=== PATIENT | female | born 2000 | race Caucasian/White ===

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

== ENCOUNTER 2021-02-23 14:00 | Outpatient (RCR) | payer OTHER, SELFPAY ==
--- NOTE | 2021-01-18 11:12 | MHC.PT.EP ---
[facility] [place] Office [place] Office [place] Office [address] Jo Ann Patel [address] [phone] F: [phone] F: [phone] F: [phone] F: [phone] Physical Therapy Plan of Care Date of Evaluation: Date of Surgery: na Diagnosis: Costochondritis (KP) Assessment: SANDRA IS A 20 YO AUTIST FEMALE, PRIMARILY NON-VERBAL. SHE PRESENTS WITH EXACCERBATION OF ANTERIOR CHEST WALL PAIN WHICH HAD BENEFITTED PREVIOUSLY FROM PT. UPON EXAM, FUNCTIONAL LIMITATIONS INCLUDE DECREASED STRENGTH OF SHOULDER AND PERISCAP MUSCULATURE, INCREASED TISSUE TENSION IN AXILLA AND PECTORALIS, DECREASED SHOULDER ROM, ALTERED POSTURE AND POSITIONING, INCREASED SOFT TISSUE TENSION AND INCREASED PAIN. FUNCTIONAL LIMITATIONS INCLUDE DECREASED ABILITY TO PERFORM SELF CARE TASKS, DECREASED PARTICIPATION IN SPORT AND VOCATIONAL PROGRAM, DISRUPTED SLEEP. FAIR CANDIDATE FOR PT TO ADDRESS DEFICITS AND MAXIMIZE RETURN TO FUNCTIONAL INDEPENDENCE. Frequency and Duration: The patient will be seen 2 X WEEK FOR 3 WEEKS Short Term Goals: REVIEW AND PROGRESS PREVIOUS HEP IN 2 VISITS INCREASED GH ROM TO WNLs, EQUAL SHAINA IN 2 WEEKS [facility] Goals: FULL, PAINFREE STRENGTH OF UPPER EXTREMITY AND SCAPULAR MUSCULATURE EQUAL SHAINA IN 3 WEEKS TO INDICATE PAIN NO MORE THAN 2/10 WITH ACTIVITIES IN 3 WEEKS TO DEMONSTRATE INDEPENDENCE WITH HEP IN 3 WEEKS Treatment Plan: Modalities to reduce pain, spasms and effusion. Manual therapy to restore motion and function. Therapeutic exercise to improve strength and flexibility. Neuromuscular re-education for posture and balance. Therapeutic activities to return to functional activities of daily living. Electronically signed by: CLEVELAND CRAMER PT, DPT Please sign and return to therapist. Thank you for your referral.
--- NOTE | 2021-02-23 14:47 | MHC.PT.DC ---
[facility] [place] Office [place] Office [place] Office [address] Jo Ann Patel [address] [phone] F: [phone] F: [phone] F: [phone] F: [phone] Physical Therapy Discharge Report Diagnosis: Costochondritis (KP) Date of Surgery: na Date of Evaluation: 01/18/21 Date of Discharge: 02/23/21 Treatments to Date: 5 Cancellations to Date: 2 No Shows to Date: 1 Discharge Status: Improved Function Independent with HEP Discharge Summary: Margaret was able to progress with therex today with increased weight and resistance. She is able to demo/recall HEP and is DCed on this date to continue with home program. Electronically signed by: Tiara Khan PT, DPT Please sign and return to therapist. Thank you for your referral.
== END 2021-02-23 14:47 | disposition home or self-care (01) ==
LOC: HO.PT 14:00
PROVIDERS: PCP Physician Assistant; Visit Provider Physician Assistant
DX: M94.0 Chondrocostal junction syndrome [Tietze] (principal)
CPT/HCPCS: 97110; 97162; 97530

== ENCOUNTER 2021-05-13 10:07 | Outpatient (REF) | payer OTHER, SELFPAY ==
[2021-05-13 11:27] LABS: COVID-19 Test Negative (Negative)
== END 2021-05-13 10:08 | disposition home or self-care (01) ==
LOC: HO.LAB 10:07
PROVIDERS: Visit Provider Internal Medicine
DX: Z20.822 Contact with and (suspected) exposure to COVID-19 (principal)
CPT/HCPCS: 36415; 87635; C9803

== ENCOUNTER 2021-06-02 10:14 | Outpatient (REF) | payer OTHER, SELFPAY ==
--- NOTE | ~2021-06-02 | XR_ITS ---
EXAMINATION: XR RIBS, LEFT CLINICAL INFORMATION: Chest pain COMPARISON: Chest x-ray 12/20/2020 TECHNIQUE: 3 views of the left ribs were obtained. Chest one view FINDINGS: Chest: There is normal expansion of both lungs without acute pneumonic process. The heart size and pulmonary vascularity is normal. Multiple views of left ribs reveal no visible fracture or bony abnormality. The soft tissues are normal. XR/XR ribs LT min 3V w CXR1V IMPRESSION: Unremarkable chest exam. Multiple views of left ribs reveal no visible fracture or bony abnormality.
== END 2021-06-02 10:15 | disposition home or self-care (01) ==
LOC: HO.XRAY 10:14
PROVIDERS: PCP Pediatrics; Visit Provider Pediatrics
DX: R07.89 Other chest pain (principal)
CPT/HCPCS: 71101

== ENCOUNTER 2022-03-22 11:00 | Emergency (ER) | payer OTHER, SELFPAY ==
--- NOTE | 2022-03-22 | ECG_ITS ---
Test Reason : chest pain Blood Pressure : / mmHG Vent. Rate : 074 BPM Atrial Rate : 074 BPM P-R Int : 158 ms QRS Dur : 084 ms QT Int : 384 ms P-R-T Axes : 029 004 023 degrees QTc Int : 426 ms Normal sinus rhythm Normal ECG When compared with ECG of 15-AUG-2020 23:30, No significant change was found Referred By: Generic ED Physician Electronically Signed By:PAMELLA MONROY MD
--- NOTE | ~2022-03-22 | XR_ITS ---
EXAMINATION: XR CHEST CLINICAL INFORMATION: Chest pain. COMPARISON: 06/02/2021 chest radiograph. TECHNIQUE: Frontal view of the chest was obtained. FINDINGS: No significant abnormality is noted involving the heart, lungs, mediastinum, bony thorax or soft tissues. XR/XR chest 1V IMPRESSION: No acute cardiopulmonary process.
[2022-03-22 11:56] VITALS: BP 116/66; BP 133/67; PULSE 72; PULSE 82; RESP 16; TEMP 36.6; O2SAT 100; O2SAT 99; BMI 42.3
[2022-03-22 12:10] LABS: MANUAL DIFF FLAG NO
[2022-03-22 12:13] LABS: Basophils Percent Auto 0.4 % (0-2); Eosinophils Absolute Auto 0.2 X10*3/uL (0.0-0.4); Eosinophils Percent Auto 2.7 % (0-4); Hemoglobin 13.8 g/dl (12.0-16.0); Imm Gran Abs Auto 0.03 X10*3/uL (0.00-0.03); Imm Gran Pct Auto 0.4 % (0.0-0.4); Lymphocytes Absolute Auto 1.3 X10*3/uL (1.2-4.9); Mean Corpuscular HGB Conc 32.1 g/dl (31.0-35.0); Mean Corpuscular Hemoglobin 27.1 pg (27.0-33.0); Mean Corpuscular Volume 84.3 fL (80.0-98.0); Monocytes Absolute Auto 0.6 X10*3/uL (0.1-1.2); Neutrophils Absolute Auto 4.9 x10*3/uL (2.0-8.3); Neutrophils Percent Auto 69.5 % (45-73); Platelet Count 280 X10*3/uL (160-400); White Blood Count 7.1 X10*3/uL (4.8-10.8)
[2022-03-22 12:24] LABS: Anion Gap 14 (12-20); Blood Urea Nitrogen 9 mg/dL (9-16); Calcium 9.3 mg/dL (8.4-10.2); Carbon Dioxide 24 mmol/L (22-29); Chloride 106 mmol/L (96-108); Creatinine Clr Calc Pharmacy 137.3; Estimated Glomerular Filt Rate > 60; Glucose Random 94 mg/dL (60-115); Potassium 3.8 mmol/L (3.3-5.1); Sodium 140 mmol/L (135-145)
[2022-03-22 12:32] LABS: Troponin-I High Sensitivity < 3.5 ng/L (<3.5-17.0)
[2022-03-22 18:15] VITALS: BP 114/71; PULSE 89; RESP 18; TEMP 36.6; O2SAT 98
[2022-03-22 20:26] VITALS: BP 108/69; PULSE 80; RESP 16; TEMP 36.9; O2SAT 99
--- OUTSIDE RECORDS SUMMARY | 2022-03-22 21:57 | XMS_ITS | Continuity of Care Document ---
:2000 Author Organization [facility] Address [address] [place] [id number]- Care Team Providers Name Role Phone Daisy PATEL, Lisa Berg Primary Care Physician Encounter [facility] [place] Date(s): 07/19/21 - 11/12/21 [facility] [address] [place] [id number] Attending Physician: Alexa PATEL, Fannie Admitting Physician: Alexa PATEL, Fannie Allergies, Adverse Reactions, Alerts No Known Allergies Medications gabapentin 250 mg/5 mL oral solution 5 mL = 250 mg, By Mouth, 3 times a day, # 420 mL, 2 Refills, Maintenance, 07/26/21 13:57:00 EST, Solution, [id number], Partial fill upon patient request, 123.4, cm, 07/19/21 12:38:00 EST, Height, 102.2, kg, 07/22/20 20:07:00 EST, Dry Weight Start Date: 07/26/21 Stop Date: 10/18/21 Status: OrderedSertraline See Instructions, By Mouth Daily, 0 Refills, Maintenance, 03/01/21 7:47:00 EDT, Partial fill upon patient request if the prescription is for a schedule II opioid drug. Start Date: 03/01/21 Status: Ordered Problem List Condition Effective Dates Status Health Status Informant Myalgia(Confirmed) Active Intercostal neuritis(Confirmed) Active Vomiting(Confirmed) Active
--- OUTSIDE RECORDS SUMMARY | 2022-03-22 21:57 | XMS_ITS | Continuity of Care Document ---
:2000 Author Organization [facility] Address [address] [place] [id number]- Care Team Providers Name Role Phone Lisa Villa MD Primary Care Physician [place] [facility] [place] 04/01/21 [facility] [address] [place] [id number]- Allergies, Adverse Reactions, Alerts Substance Reaction Severity Status NKA Active Medications baclofen 5 mg oral tablet 1 tablet = 5 mg, By Mouth, 3 times a day, Start off taking 5 mg at night before sleep. If not overlydrowsy, can increase to 5 mg three times a day as needed, # 90 tablet, 2 Refills, Maintenance, 03/01/21 8:36:00 EDT, Tablet, [id number], [place]... Start Date: 03/01/21 Stop Date: 05/30/21 Status: Orderedfluticasone 50 mcg inhalation powder 1 puffs = 50 mcg, Inhalation, 2 times a day, each, 0 Refills, Maintenance Start Date: 08/03/10 Status: Orderedibuprofen 200 mg oral capsule 2 capsule = 400 mg, By Mouth, Every 4 hours, PRN for pain, # 120 capsule, 0 Refills, Maintenance, 03/01/21 7:46:00 EDT, Capsule, Partial fill upon patient request if the prescription is for a schedule II opioid drug. Start Date: 03/01/21 Status: Orderedomeprazole 40 mg oral enteric coated capsule 1 capsule = 40 mg, By Mouth, Daily, before a meal, # 14 capsule, 0 Refills, Maintenance, 07/22/20 19:57:00 EST, EC Capsule, [id number], Partial fill upon patient request if the prescription is for a schedule II opioid drug., 102.2, kg, 2... Start Date: 07/22/20 Stop Date: 08/05/20 Status: OrderedPerformix P2 Performix P2, See Instructions, # 180 Gm, Refills 5, Tot. Refills 5, Maintenance, Ketamine 10% Baclofen 2% Gabapentin 10% Imipramine 3% Nifedipine 2% Bupivicaine 2% in Liposomal cream, 03/01/21 13:45:00 EDT, Compound Start Date: 03/01/21 Status: OrderedProAir HFA Inhalation, 4 times a day, 0 Refills, Maintenance Start Date: 08/03/10 Status: OrderedQvar 40 mcg/inh inhalation aerosol with adapter 2 puffs, Inhalation, 2 times a day, 0 Refills, Maintenance Start Date: 08/03/10 Status: OrderedSertraline See Instructions, By Mouth Daily, 0 Refills, Maintenance, 03/01/21 7:47:00 EDT, Partial fill upon patient request if the prescription is for a schedule II opioid drug. Start Date: 03/01/21 Status: OrderedSingulair 4 mg oral granule 1 each = 4 mg, By Mouth, Daily before dinner, 0 Refills, Maintenance Start Date: 08/03/10 Status: Ordered Problem List Condition Effective Dates Status Health Status Informant Intercostal neuritis(Confirmed) Active Vomiting(Confirmed) Active
--- OUTSIDE RECORDS SUMMARY | 2022-03-22 21:57 | XMS_ITS | Continuity of Care Document ---
:2000 Author Organization [facility] Address [address] [place] [id number]- Care Team Providers Name Role Phone Lisa Villa MD Primary Care Physician Encounter [facility] [place] Date(s): 10/25/21 - 11/24/21 [facility] [address] [place] [id number] Attending Physician: Annie Nair Admitting Physician: Anine Nair Referring Physician: trAnnie Allergies, Adverse Reactions, Alerts No Known Allergies Medications gabapentin 250 mg/5 mL oral solution 5 mL = 250 mg, By Mouth, 3 times a day, # 420 mL, 2 Refills, Maintenance, 07/26/21 13:57:00 EST, Solution, [id number], Partial fill upon patient request, 123.4, cm, [...]
--- OUTSIDE RECORDS SUMMARY | 2022-03-22 21:57 | XMS_ITS | Continuity of Care Document ---
:2000 Author Organization [facility] Address [address] [place] [id number]- Care Team Providers Name Role Phone Lisa Villa MD Primary Care Physician Encounter [facility] [place] Date(s): 07/16/20 - 07/16/[address] [address]- Encounter Diagnosis Chest wall pain (Final) - 07/16/20 Discharge Disposition: A-D/C Home Attending Physician: Gary Quiroga MD Admitting Physician: Gary Quiroga MD Referring Physician: Not on Staff, Referring MD Allergies, Adverse Reactions, Alerts Substance Reaction Severity Status NKA Active Medications fluticasone 50 mcg inhalation powder 1 puffs = 50 mcg, Inhalation, 2 times a day, each, 0 Refills, Maintenance Start Date: 08/03/10 Status: OrderedProAir HFA Inhalation, 4 times a day, 0 Refills, Maintenance Start Date: 08/03/10 Status: OrderedQvar 40 mcg/inh inhalation aerosol with adapter 2 puffs, Inhalation, 2 times a day, 0 Refills, Maintenance Start Date: 08/03/10 Status: OrderedSingulair 4 mg oral granule 1 each = 4 mg, By Mouth, Daily before dinner, 0 Refills, Maintenance Start Date: 08/03/10 Status: Ordered Problem List Condition Effective Dates Status Health Status Informant Vomiting(Confirmed) Active Results Radiology Reports Exam Date Time Procedure Performing Provider Status 07/16/20 11:09 AM Chest 2 Views Frontal and Lat Jimbo Orosco (Verified) Notes:(Chest 2 Views Frontal and Lat) Reason For Exam: Shortness of Breath;Other:RESULT: Chest 2 Views Frontal and Lat Chest 2 Views Frontal and Lat Hx of Present Illness: Right Mid chest pain x 3-4 days. Reason: Wrist pain, Shortness of Breath; COMPARISON: August 08, 2010 FINDINGS: LINES AND TUBES: None. LUNGS AND PLEURA: The lungs are clear. No pleural effusion. No pneumothorax. HEART, MEDIASTINUM AND JAMIA: Normal. BONES AND SOFT TISSUES: Normal. IMPRESSION: Normal. WSN: [id number] Ordering Physician: Jyoti Armenta Dictated By: Ovidio Gardner MD Dictated Date/Time: 07/16/20 11:12 a Reviewed By: Ovidio Gardner MD Signed By: Ovidio Gardner MD Signed Date/Time: 07/16/20 11:12 am Transcribed By: KAVON Transcribed Date/Time: 07/16/20 11:11 am Vital Signs Most recent to oldest 1 2 3 [Reference Range]: Oxygen Saturation [94-100 %] 100 % 98 % 98 % (07/16/20 11:30 AM) (07/16/20 9:17 AM) (07/16/20 9: 04 AM) Pulse Rate [55-90 bpm] 81 bpm 92 bpm 95 bpm (07/16/20 11:30 AM) *H* *H* (07/16/20 9:17 AM) (07/16/20 9:04 AM) Blood Pressure [71-110/30-71 121/80 mm Hg 115/69 mm Hg mm Hg] *H* *H* (07/16/20 11:30 AM) (07/16/20 9:17 AM) Respiratory Rate [16-30 18 br/min 16 br/min 18 br/mi n br/min] (07/16/20 11:30 AM) (07/16/20 9:17 AM) (07/16/20 9: 04 AM) Temperature [96.8-100.4 DegF] 98.1 DegF 99.1 DegF (07/16/20 11:30 AM) (07/16/20 9:17 AM) Mode of Delivery (Oxygen) Room air Room air (07/16/20 11:30 AM) (07/16/20 9:17 AM) Blood pressure sites Arm, left (07/16/20 11:30 AM) Temperature Route Oral Oral (07/16/20 11:30 AM) (07/16/20 9:17 AM)
--- OUTSIDE RECORDS SUMMARY | 2022-03-22 21:57 | XMS_ITS | Continuity of Care Document ---
:2000 Author Organization [facility] Address [address] [place] [id number]- Care Team Providers Name Role Phone Lisa Villa MD Primary Care Physician Encounter [facility] [place] Date(s): 07/22/20 - 07/22/[address] [id number]- Discharge Disposition: A-D/C Home Attending Physician: Malik Couch MD Admitting Physician: Malik Couch MD Referring Physician: Not on Staff, Referring MD Allergies, Adverse Reactions, Alerts Substance Reaction Severity Status NKA Active Medications fluticasone 50 mcg inhalation powder 1 puffs = 50 mcg, Inhalation, 2 times a day, each, 0 Refills, Maintenance Start Date: 08/03/10 Status: Orderedomeprazole 40 mg oral enteric coated capsule 1 capsule = 40 mg, By Mouth, Daily, before a meal, # 14 capsule, 0 Refills, Maintenance, 07/22/20 19:57:00 EST, EC Capsule, [id number], Partial fill upon patient request if the prescription is for a schedule II opioid drug., 102.2, kg, 2... Start Date: 07/22/20 Stop Date: 08/05/20 Status: OrderedProAir HFA Inhalation, 4 times a [...] Dates Status Health Status Informant Vomiting(Confirmed) Active Vital Signs Most recent to oldest 1 2 3 [Reference Range]: Weight 102.2 kg 102.2 kg (07/22/20 8:07 PM) (07/22/20 2:22 PM) Oxygen Saturation [94-100 %] 100 % 99 % 98 % (07/22/20 8:07 PM) (07/22/20 2:22 PM) (07/22/20 1:4 2 PM) Pulse Rate [55-90 bpm] 99 bpm 85 bpm 97 bpm *H* (07/22/20 2:22 PM) *H* (07/22/20 8:07 PM) (07/22/20 1:42 PM) Blood Pressure [71-110/30-71 mm 124/60 mm Hg 115/54 mm Hg Hg] *H* *H* (07/22/20 8:07 PM) (07/22/20 2:22 PM) Respiratory Rate [16-30 br/min] 18 br/min 16 br/min 18 br/min (07/22/20 8:07 PM) (07/22/20 2:22 PM) (07/22/20 1:4 2 PM) Temperature [96.8-100.4 DegF] 98.3 DegF 97.8 DegF (07/22/20 8:07 PM) (07/22/20 2:22 PM) Mode of Delivery (Oxygen) Room air Room air (07/22/20 8:07 PM) (07/22/20 2:22 PM) Blood pressure sites Arm, right Arm, left (07/22/20 8:07 PM) (07/22/20 2:22 PM) Temperature Route Oral (07/22/20 2:22 PM) Dry Weight 102.2 kg 102.2 kg (07/22/20 8:07 PM) (07/22/20 2:22 PM) Weight Obtained Via Standing scale (07/22/20 2:22 PM) Dry Weight Obtained Via Standing scale (07/22/20 2:22 PM)
--- OUTSIDE RECORDS SUMMARY | 2022-03-22 21:57 | XMS_ITS | Continuity of Care Document ---
:2001 Author Organization [facility] Address [address] [place] [phone]- Care Team Providers Name Role Phone Daisy PATEL, Lisa Begr Primary Care Physician [place] [facility] [place]/21 [facility] [address] [place] [phone]- Attending Physician: Not on Staff, Attending MD Referring Physician: Jada Starkey Allergies, Adverse Reactions, Alerts Substance Reaction Severity [...] a schedule II opioid drug., 102.2, kg, ... Start Date: 07/22/20 Stop Date: 08/05/20 Status: [...]
--- OUTSIDE RECORDS SUMMARY | 2022-03-22 21:57 | XMS_ITS | Continuity of Care Document ---
:2001 Author Organization [facility] Address [address] [place] [phone]- Care Team Providers Name Role Phone Lisa Villa MD Primary Care Physician [place] [facility] [place]21 - 08/24/21 [facility] [address] [place] [phone]- Allergies, Adverse Reactions, Alerts No Known Allergies Medications baclofen 5 mg oral tablet 1 tablet = 5 mg, By Mouth, 3 times a day, Start off taking 5 mg at night before sleep. If not overlydrowsy, can increase to 5 mg three times a day as needed, # 90 tablet, 2 Refills, Maintenance, 03/01/21 8:36:00 EDT, Tablet, [id number], [place]... Start Date: 03/01/21 Stop Date: 05/30/21 Status: Orderedgabapentin 250 mg/5 mL oral solution 5 mL = 250 mg, By Mouth, 3 times a day, # 420 mL, 2 Refills, Maintenance, 07/26/21 13:57:00 EST, Solution, [id number], Partial fill upon patient request, 123.4, cm, 07/19/21 12:38:00 EST, Height, 102.2, kg, 07/22/20 20:07:00 EST, Dry Weight Start Date: 07/26/21 Stop Date: 10/18/21 Status: OrderedPerformix P2 Performix P2, See Instructions, # 180 Gm, Refills 5, Tot. Refills 5, Maintenance, Ketamine 10% Baclofen 2% Gabapentin 10% Imipramine 3% Nifedipine 2% Bupivicaine 2% in Liposomal cream, 03/01/21 13:45:00 EDT, Compound Start Date: 03/01/21 Status: OrderedSertraline See Instructions, By Mouth Daily, 0 Refills, Maintenance, 03/01/21 7:47:00 EDT, Partial fill upon patient request if the prescription is for a schedule II opioid drug. Start Date: 03/01/21 Status: Ordered Problem List Condition Effective Dates Status Health Status Informant Myalgia(Confirmed) Active Intercostal neuritis(Confirmed) Active Vomiting(Confirmed) Active
--- NOTE | 2022-03-22 22:19 | ED.CHESTPAIN ---
HPI - Chest Pain General Chief Complaint: Chest Pain Stated Complaint: CP Time Seen by Provider: 03/22/22 21:43 Source: patient Mode of arrival: ambulatory Limitations: no limitations History of Present Illness HPI narrative: Patient is a 21-year-old female who presents to the emergency department with her mother for evaluation of chest pain. At 09:30 this morning patient was at her day program when she began reporting pain to the middle of her chest described as tightness, and had reported shortness of breath. She was brought by EMS to the emergency department. The pain started suddenly while she was sitting down. Patient and mother deny recent upper respiratory symptoms, fevers, chills, nasal congestion, sore throat, cough, nausea, vomiting, abdominal pain, numbness or tingling of the extremities, lower extremity swelling or redness, history of DVT/PE, history of coagulation disorder, cigarette smoking, oral contraceptive usage/hormone usage. Related Data Previous Rx's Medication Instructions Recorded ibuprofen 600 mg tablet 600 mg PO Q8H PRN pain #20 tabs 07/19/20 melatonin 5 mg/15 mL oral liquid 5 mg (15 mL) PO .nightly PRN sleep 07/11/21 trouble #240 mL gabapentin 250 mg/5 mL oral 250 mg (5 mL) PO TID 30 days #450 03/07/22 solution mL Allergies Allergy/AdvReac Type Severity Reaction Status Date / Time No Known Allergies Allergy Verified 02/10/22 16:40 Review of Systems Review of Systems: Constitutional : No Weight loss, No Fever, No Chills ENT/Mouth :? No sore throat, No Rhinorrhea Eyes: No Eye Pain, No Swelling Cardiovascular : pos Chest Pain, pos SOB, no Dyspnea on Exertion, No Orthopnea, No Edema, No Palpitations Respiratory : No Cough, No Sputum Gastrointestinal : No Nausea, No Vomiting, No Diarrhea, No abdominal Pain, No Hematochezia, No Melena Genitourinary : No Dysuria, No Urinary Frequency Musculoskeletal : No joint pain, No Myalgias, No Joint Swelling Skin : No Skin Lesions, No rash Neuro : No Weakness, No Numbness, No Dizziness, No Headache Psych : No Anxiety/Panic, No Depression Heme/Lymph: No Bruising, No Lymphadenopathy Endocrine : No Polyuria, No Polydipsia Yes all other systems are reviewed and are negative [facility] Past Medical History Attestation statement: The following information was validated with the patient. Source: old records reviewed Family History Family History Mother No problems noted. Social History Social History Alcohol intake: never Advance Directives: No Advance Directives Information Provided: No Physical Exam Vital Signs: Vital Signs: Last Vital Signs Temp 98.5 F 03/22/22 20:26 Pulse 80 03/22/22 20:26 Resp 16 03/22/22 20:26 BP 108/69 03/22/22 20:26 Pulse Ox 99 03/22/22 20: O2 Del Method 03/22/22 20:26 BMI result Body Mass Index 42.3 Vital signs have been reviewed as normal and appeared to be correct. Blood pressure normal.? Heart rate normal.? Respiration rate normal. Temperature normal.? Oxygen saturation normal. Appearance: Alert.?Oriented to person, place and time. No acute distress.? Flat affect. Eyes: Pupils equal, round and reactive to light.? ENT: Pharynx normal.?? Neck: Normal inspection.? Neck supple.?? CVS: Heart sounds normal. Normal heart rate and rhythm.? Pulses normal.?? Respiratory: No respiratory distress.? Lung sounds clear to auscultation bilaterally?? Abdomen: Soft and non-tender. Normoactive bowel sounds. Skin: Skin warm and dry.? Normal skin color.? Extremities: No lower extremity edema.? No calf ttp? Neuro: Moves all extremities spontaneously. Sensation intact bilaterally. No focal neuro deficits. Ambulates with normal steady gait. Course Course Course Narrative: Patient is a 21-year-old female with a past medical history of autism who presents to emergency department for evaluation of chest pain. Presents here today with her mother. At the time re-examination she is overall well-appearing. Flat affect. No apparent respiratory distress. Vital signs are stable. Review of labs obtained from triage reveal an overall unremarkable CBC and CMP. Troponin <3.5, EKG reveals normal sinus rhythm with no acute ischemic findings, not consistent with ACS. Chest x-ray reveals no acute cardiopulmonary process not consistent with pneumonia. PERC negative, D-Dimer 193, not consistent with pulmonary embolism. Received ibuprofen in the emergency department with some relief from pain. Suspect costochondritis at this time, mother reports that she has had a history of this in the past as well. Discussed plan of care for discharge home, worsened signs and symptoms to return back to the emergency department for, Tylenol/ibuprofen as needed for pain. MDM - Chest Pain Medical Records Data Attestation: I reviewed the patient's medical records. Lab Data Attestation: I reviewed the patient's lab results. Result diagrams: 03/22/22 12:06 03/22/22 12:06 Labs: Lab Results 03/22/22 03/22/22 03/22/22 Range/Units 12:06 12:06 12:06 WBC 7.1 (4.8-10.8) X10*3/uL RBC 5.10 (4.20-5.50) X10*6/uL Hgb 13.8 (12.0-16.0) g/dl Hct 43.0 (37.0-47.0) % MCV 84.3 (80.0-98.0) fL MCH 27.1 (27.0-33.0) pg MCHC 32.1 (31.0-35.0) g/dl RDW 14.0 (11.0-16.0) % Plt Count 280 (160-400) X10*3/uL MPV 9.0 L (9.4-12.3) fL Immature Gran % (Auto) 0.4 (0.0-0.4) % Neut % (Auto) 69.5 (45-73) % Lymph % (Auto) 18.0 L (20-40) % [place] % (Auto) 9.0 (2-11) % Eos % (Auto) 2.7 (0-4) % Baso % (Auto) 0.4 (0-2) % Lymph # (Auto) 1.3 (1.2-4.9) X10*3/uL [place] # (Auto) 0.6 (0.1-1.2) X10*3/uL Eos # (Auto) 0.2 (0.0-0.4) X10*3/uL Baso # (Auto) 0.0 (0.0-0.2) X10*3/uL Abs Immat Gran (auto) 0.03 (0.00-0.03) X10*3/uL Absolute Neuts (auto) 4.9 (2.0-8.3) x10*3/uL Absolute Nucleated RBC 0.000 (0.0-0.012) X10*3/uL Nucleated RBC % (auto) 0.0 (0.0-0.2) /100WBC D-Dimer High Sensitivty NG/ML Sodium 140 (135-145) mmol/L Potassium 3.8 (3.3-5.1) mmol/L Chloride 106 (96-108) mmol/L Carbon Dioxide 24 (22-29) mmol/L Anion Gap 14 (12-20) BUN 9 (9-16) mg/dL Creatinine 0.80 (0.5-1.4) mg/dL Estim Creat Clear Calc 137.3 Estimated GFR > 60 Random Glucose 94 (60-115) mg/dL Calcium 9.3 (8.4-10.2) mg/dL Troponin I High Sens < 3.5 (<3.5-17.0) ng/L 03/22/22 Range/Units 22:38 WBC (4.8-10.8) X10*3/uL RBC (4.20-5.50) X10*6/uL Hgb (12.0-16.0) g/dl Hct (37.0-47.0) % MCV (80.0-98.0) fL MCH (27.0-33.0) pg MCHC (31.0-35.0) g/dl RDW (11.0-16.0) % Plt Count (160-400) X10*3/uL MPV (9.4-12.3) fL Immature Gran % (Auto) (0.0-0.4) % Neut % (Auto) (45-73) % Lymph % (Auto) (20-40) % [place] % (Auto) (2-11) % Eos % (Auto) (0-4) % Baso % (Auto) (0-2) % Lymph # (Auto) (1.2-4.9) X10*3/uL [place] # (Auto) (0.1-1.2) X10*3/uL Eos # (Auto) (0.0-0.4) X10*3/uL Baso # (Auto) (0.0-0.2) X10*3/uL Abs Immat Gran (auto) (0.00-0.03) X10*3/uL Absolute Neuts (auto) (2.0-8.3) x10*3/uL Absolute Nucleated RBC (0.0-0.012) X10*3/uL Nucleated RBC % (auto) (0.0-0.2) /100WBC D-Dimer High Sensitivty 193 NG/ML Sodium (135-145) mmol/L Potassium (3.3-5.1) mmol/L Chloride (96-108) mmol/L Carbon Dioxide (22-29) mmol/L Anion Gap (12-20) BUN (9-16) mg/dL Creatinine (0.5-1.4) mg/dL Estim Creat Clear Calc Estimated GFR Random Glucose (60-115) mg/dL Calcium (8.4-10.2) mg/dL Troponin I High Sens (<3.5-17.0) ng/L Imaging Data Chest x-ray: Radiologist's impression: XR/XR chest 1V IMPRESSION: No acute cardiopulmonary process. ECG Data ECG #1: Attestation: I personally reviewed and interpreted this ECG as follows: ECG interpretation date: 03/22/22 Prior ECG tracings: available for review Interpretation: Rate: 74 Rhythm:? Normal sinus rhythm Normal:? Normal Normal P waves.? Normal JASON.?? Normal QRS complex.?? ST T wave :??No ST elevation, no ST depression, no T-wave inversion qTC: 426 prior studies:? 2020 The study has been interpreted contemporaneously by me. Discharge Plan Discharge Clinical Impression: Acute costochondritis Patient Disposition: Home, Self-Care Instructions: Costochondritis (ED) Additional Instructions: You can take ibuprofen 200 mg, 3 tablets (600mg) every 6-8 hours as needed for pain, in addition to Tylenol 500 mg, 2 tablets (1,000mg) every 4-6 hours as needed for pain, but not to exceed 3 doses daily (3,000mg).? Follow-up with your primary care provider as needed Return to the emergency department any new or worsening symptoms or concerns. Prescriptions: No Action gabapentin 250 mg/5 mL solution 250 mg PO TID 30 Days Qty: 450 1RF ibuprofen 600 mg tablet 600 mg PO Q8H PRN (Reason: pain) Qty: 20 0RF melatonin 5 mg/15 mL liquid 5 mg PO .nightly PRN (Reason: sleep trouble) Qty: 240 2RF Interventions: ED Discharge Assessment Last Done: 03/22/22 23:17 Discharge Date/Time: 03/22/22 23:17
[2022-03-22] MEDS: Ibuprofen Oral Susp 200 MG/10 ML ORAL.SUSP 600 MG PO (22:32)
[2022-03-22 22:52] LABS: D Dimer High Sensitivity 193 NG/ML
== END 2022-03-22 23:17 | disposition home or self-care (01) ==
PROVIDERS: Nurse Practitioner Family; Emergency Provider Emergency Medicine Emergency Medical Services; PCP Physician Assistant
DX: R07.89 Other chest pain (principal); R06.02 Shortness of breath; Z79.899 Other long term (current) drug therapy
CPT/HCPCS: 36415; 71045; 80048; 84484; 85025; 85379; 93005; 99283; 99284

== ENCOUNTER 2022-03-27 12:57 | Emergency (ER) | payer OTHER, SELFPAY ==
[2022-03-27 13:15] VITALS: BP 115/70; PULSE 83; RESP 18; TEMP 36.6; O2SAT 98; BMI 35.9
--- NOTE | 2022-03-27 15:43 | ED.GENADULT ---
HPI - General Adult General Chief complaint: General Medical Stated complaint: Tightness in chest Time Seen by Provider: 03/27/22 15:43 Source: patient and family (mother) Mode of arrival: ambulatory Limitations: physical limitation (patient is autistic with some cognitive delay) History of Present Illness HPI narrative: Patient is a 21 year old assigned female at with a history of autism and anxiety presenting to the emergency department today with chest wall pain. Patient states that she has chest pain that is worse with movement and when she pushes on it. Patient states that it is the same feeling she was seen here for before. Patient denies any dizziness, lightheadedness, abdominal pain, nausea, vomiting, fever, chills, blurry vision, double vision, loss of vision, difficulty breathing, shortness of breath, back pain, night sweats, pain with urination, increased urinary frequency, increased urinary urgency, blood in her urine or stool, syncope or a near syncopal episode, recent trauma or falls, bowel incontinence, bladder incontinence, bowel retention, bladder retention, or any other complaints at this time. Onset (ago): day(s) Location: chest Radiation: non-radiation Severity: mild Severity scale (1-10): 3 Quality: aching Pain Consistency: intermittent Relieving factors: none Exacerbating factors: other (palpation) Associated symptoms: denies other symptoms Treatments prior to arrival: none Related Data Previous Rx's Medication Instructions Recorded ibuprofen 600 mg tablet 600 mg PO Q8H PRN pain #20 tabs 07/19/20 melatonin 5 mg/15 mL oral liquid 5 mg (15 mL) PO .nightly PRN sleep 07/11/21 trouble #240 mL gabapentin 250 mg/5 mL oral 250 mg (5 mL) PO TID 30 days #450 03/07/22 solution mL Allergies Allergy/AdvReac Type Severity Reaction Status Date / Time No Known Allergies Allergy Verified 02/10/22 16:40 Review of Systems Constitutional: Constitutional: Reports no additional constitutional complaints, Denies chills, Denies fever(s) and Denies night sweats Eyes: Eyes: Reports no additional eye complaints, Denies blurry vision, Denies change in vision, Denies diplopia, Denies eye discharge, Denies loss of vision and Denies eye pain ENT: Denies dizziness Cardiovascular: Cardiovascular: Reports no additional cardiovascular complaints, Reports chest pain, Denies lightheadedness, Denies Loss of Consciousness and Denies dyspnea Respiratory: Respiratory: Reports no additional respiratory complaints and Denies dyspnea Gastrointestinal: Gastrointestinal: Reports no additional gastrointestinal complaints, Denies abdominal pain, Denies melena, Denies hematochezia, Denies change in bowel habits and Denies change in stool character Genitourinary: Genitourinary: Denies hematuria, Denies urinary frequency, Denies dysuria, Denies urinary incontinence, Denies urinary hesitancy and Denies urinary urgency Musculoskeletal: Musculoskeletal: Reports no additional musculoskeletal complaints, Denies numbness and Denies tingling Neurologic: Denies dizziness, Denies loss of vision, Denies numbness and Denies tingling Psychiatric: Psychiatric: Reports no additional psychiatric complaints Endocrine: Endocrine: Reports no additional endocrine complaints Hematologic/Lymphatic: Hematologic/Lymphatic: Reports no additional hematologic/lymphatic complaints Allergic/Immunologic: Allergic/Immunologic: Reports no additional allergic/immunologic complaints PMFSH Past Medical History Attestation statement: The following information was validated with the patient. Source: old records reviewed Family History Family History Mother No problems noted. Social History Social History Alcohol intake: never Advance Directives: No Advance Directives Information Provided: No Physical Exam ED Vital Signs: Vital Signs - 24 hr 03/27/22 13:15 Temperature 98 F Pulse Rate 83 Respiratory Rate 18 Blood Pressure 115/70 Pulse Oximetry 98 Oxygen Delivery Method Room Air BMI result Body Mass Index 35.9 Const General: cooperative, no acute distress, alert and awake Nutritional Appearance: well nourished Orientation/consciousness: patient oriented x3 Limitations: no limitations [facility] Head: Yes normal to inspection and Yes atraumatic Ears: hearing grossly normal bilaterally and external ears normal General nose exam: Normal external nose present, no nasal discharge noted and no epistaxis Face and sinus: Yes normal facial exam, No abrasion and No laceration Mouth: Normal oral and palatal mucosa present, no drooling and no muffled voice Eyes General: appearance normal, both eyes and all related structures Periorbital: periorbital findings normal Eyelids: Yes eyelids normal Conjunctivae: conjunctivae normal Pupils: Equal, round and reactive pupils present EOM: EOMs intact bilaterally Neck Neck: Yes normal visual inspection, Yes full ROM and Yes no lymphadenopathy Chest Chest palpation & inspection: normal inspection of the chest Resp Effort & Inspection: normal respiratory effort and able to speak in complete sentences Auscultation: clear to auscultation bilaterally Cardio Rate: regular rate Rhythm: regular rhythm GI Inspection: Yes normal to inspection Neuro General: patient oriented x3 and moves all extremities Cranial nerves: Yes Equal, round and reactive pupils present Cognition (Neuro): normal cognition Motor exam (neuro): 5/5 motor strength present throughout Sensory Exam: Normal double simultaneous stimulation for sensation Coordination: [id number] test normal Extrem General: Yes normal to inspection, Yes full ROM and Yes capillary refill normal Psych Appearance: grossly normal Mental Status: mental status grossly normal Affect: normal affect Attitude: cooperative Thought process: Normal thought process present Thought content: Normal thought content present Insight: Good insight present (Psych) Medical Decision Making MDM Narrative Medical decision making narrative: Patient is a 21 year old assigned female at with a history of autism and anxiety presenting to the emergency department today with chest wall pain. Patient's physical exam was unremarkable. I explained my physical exam findings to the patient and the patient's mother. I answered all questions asked by the patient and the patient's mother. I stressed the importance of the patient taking her medication as prescribed. I stressed the importance of the patient following up with her primary care provider. I stressed the importance of the patient returning to the emergency department immediately if her symptoms were to worsen or if she were to develop any dizziness, shortness of breath, difficulty breathing, chest pain, blurry vision, loss of vision, nausea, vomiting, abdominal pain, fever, chills, back pain, or any other complaints. Patient and the patient's mother verbalized agreement and understanding with this treatment plan and discharge. Medical Records Medical records reviewed: Yes I reviewed the patient's medical records. Discharge Plan Discharge Clinical Impression: Acute costochondritis Patient Disposition: Home, Self-Care Instructions: Costochondritis (ED) Additional Instructions: Follow up with your primary care provider. Return to the emergency department immediately if your symptoms worsen or if you develop any dizziness, shortness of breath, difficulty breathing, chest pain, blurry vision, loss of vision, nausea, vomiting, abdominal pain, fever, chills, back pain, or any other complaints. Prescriptions: No Action gabapentin 250 mg/5 mL solution 250 mg PO TID 30 Days Qty: 450 1RF ibuprofen 600 mg tablet 600 mg PO Q8H PRN (Reason: pain) Qty: 20 0RF melatonin 5 mg/15 mL liquid 5 mg PO .nightly PRN (Reason: sleep trouble) Qty: 240 2RF Referrals: Jada Delgado PA-C [Primary Care Provider] - Stand Alone Forms: Work/School Release Interventions: ED Discharge Assessment Last Done: 03/27/22 16:19 Discharge Date/Time: 03/27/22 16:20 Print Language: [place]
== END 2022-03-27 16:20 | disposition home or self-care (01) ==
PROVIDERS: Emergency Provider Emergency Medicine; PCP Physician Assistant
DX: R07.89 Other chest pain (principal); M94.0 Chondrocostal junction syndrome [Tietze]
CPT/HCPCS: 99282; 99283

== ENCOUNTER 2022-05-17 16:00 | Outpatient (RCR) | payer OTHER, SELFPAY | END 2022-05-17 17:58 | disposition home or self-care (01) | LOC: HO.PT 16:00 | PROVIDERS: PCP Physician Assistant; Visit Provider Student in an Organized Health Care Education/Training Program | DX: M94.0 Chondrocostal junction syndrome [Tietze] (principal) | CPT/HCPCS: 97110; 97162 ==

== ENCOUNTER 2023-08-06 13:36 | Outpatient (AMB) | payer OTHER, SELFPAY ==
[2023-08-06 13:40] VITALS: BP 112/80; PULSE 102; O2SAT 97; BMI 42.0
--- NOTE | 2023-08-06 13:40 | MHC.PC.OV ---
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 Accompanied by: Self / Same As Patient Allergies No Known Allergies Allergy (Verified 08/06/23 14:32) Medication List - Last Reconciled 08/06/23 by Gurdeep Cedeno MD betamethasone dipropionate 0.05% 1 appl topical BID PRN 10 days gabapentin 250 mg (5 mL) PO TID 30 days ibuprofen 600 mg PO Q8H PRN NS melatonin 5 mg PO BEDTIME sertraline 20 mg PO DAILY Tobacco use date assessed: 08/06/23 Dental Screening Dental Screen Date: 08/06/23 Did you have a dental visit in the last 12 months?: Yes Did you have a dental problem in the last 6 months where you did not have access to dental care?: No Was dental information given to patient?: Patient has dentist 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 HPI Details Patient comes in today for her annual physical examination and to establish care - is a new patient to the practice She is transferring over from her founder as she has outgrown the practice Patient has autism and is mostly non-verbal although she would occasionally speak in one word answers; information is obtained mostly from her aunt, who is here with her today, and with patient's mother, who is on videophone They states that patient has been out of her Gabapentin for about 2 to 3 months now and has been complaining of increasing pain and discomfort over her left lower rib cage area lately She also points to a rash over her right elbow area that her aunt states she's had for a couple of months now Relates that patient has indicated to them recently that the rash feels itchy often States that they have a strong family history of diabetes (both her aunt and mother have diabetes) and they would like patient to get checked for that as well Patient has been on Sertraline 20 mg QD for a while now for anxiety - her aunt states that being on Sertraline has helped a lot but she feels that her anxiety can still be better controlled and would like to see if her dose can be increased of appropriate States that all of patient's medications have to be in liquid form as she has trouble swallowing pills; patient has no problems when eating or drinking though and her swallowing issues seem to be isolated to medications - states that her mother has the same issue Patient reportedly is doing well otherwise, with no acute complaints of headaches, dizziness, chest pains or SOB She denies any nausea/vomiting or abdominal pain and no change in bowel habits noted She has no acute urinary issues and sleeps okay at night - has Melatonin 5 mg QD at bedtime [facility] Medical History (Updated 08/06/23 @ 15:34 by Gurdeep Cedeno MD) Morbid obesity with BMI of 40.0-44.9, adult Insomnia Anxiety Autism Intercostal neuritis Surgical History (Updated 08/06/23 @ 15:04 by Gurdeep Cedeno MD) No pertinent past surgical history Family History Mother No problems noted. Other Diabetes FH: mental illness Substance abuse Social History Housing: Apartment Alcohol intake: never Patient Tobacco Use Status: Never used Tobacco service: No Current occupational status: student Cognitive needs: No Hearing needs: No Vision needs: No Questionnaire PHQ-9 Over the last 2 weeks, how often have you been bothered by any of the following problems? 1. Little interest or pleasure in doing things: not at all 2. Feeling down, depressed, or hopeless: not at all 3. Trouble falling or staying asleep, or sleeping too much: not at all 4. Feeling tired or having little energy: not at all 5. Poor appetite or overeating: not at all 6. Feeling bad about yourself - or that you are a failure or have let yourself or your family down: not at all 7. Trouble concentrating on things, such as reading the newspaper or watching television: not at all 8. Moving or speaking so slowly that other people could have noticed. Or the opposite - being so fidgety or restless that you have been moving around a lot more than usual: not at all 9. Thoughts that you would be better off or of hurting yourself in some way: not at all Total score: 0 Depression Screening Interpretation: Negative Depression Screening Done: Yes 65383 - PHQ-9 Billing: Yes Source: Developed by Drs. Roman Baldwin, Elena Delgado, Alod Scott and colleagues, with an educational luciano from [employer]. Thrive Questionnaire Date Thrive assessed: 08/06/23 I am a: Parent/Caregiver What is your living situation today?: I have a steady place to live Within the past 12 months, did the food you bought not last and you didn't have the money to get more?: Never true Within the past 12 months, did you worry whether your food would run out before you got money to buy more?: Never true Do you have trouble paying for medicines?: No Do you have trouble getting transportation to medical appointments?: No Do you have trouble paying your heating and electricity bill?: No Do you have trouble taking care of your child, family member or friend?: No Do you have trouble with day-to-day activities such as bathing, preparing meals, shopping, managing finances, etc.?: No Are you currently unemployed and looking for a job?: No Are you interested in more education?: No Please select the resources that you would like help with: None Currently or been in a relationship where the following occur: no concerns reported THRIVE Score: 0 AUDIT C Alcohol Use Questionnaire (AUDIT-C) 1. How often do you have a drink containing alcohol?: Never 3. How often do you have six or more drinks on one occasion?: Never Total Score: 0 Score Reviewed/Action Taken: Yes JAYSON-7 AMB Questionnaire JAYSON-7 Date JAYSON - 7 assessed: 08/06/23 Feeling nervous, anxious, or on edge: 3 = Nearly every day Not being able to stop or control worryin = Not at all Worrying too much about different things: 0 = Not at all Trouble relaxin = Not at all Being so restless that it is hard to sit still: 0 = Not at all Becoming easily annoyed or irritable: 0 = Not at all Feeling afraid as if something awful might happen: 0 = Not at all Total JAYSON-7 score (0-4 normal; 5-9 mild; 10-14 moderate; 15-21 severe): 3 Source: Developed by Elena Pretty Kurt Kroenke and colleagues, with an educational luciano from [employer]. Review of Systems Const Details: ROS information is obtained mostly from patient's aunt / family as patient has autism and is mostly non-verbal Denies chills, Denies fatigue, Denies fever(s), Denies headache(s) and Denies malaise Eyes Denies blurry vision, Denies irritation and Denies itchy eyes ENT Denies dysphagia, Denies dizziness, Denies otalgia, Denies headache(s), Denies nasal congestion, Denies neck pain, Denies odynophagia, Denies sinus pain and Denies sore throat Card Denies chest pain, Denies rapid heart rate, Denies irregular heart rhythm, Denies palpitations and Denies dyspnea Resp Details: per family, has been c/o increased pain over the left lower ribs on the (left) lateral side of her thorax lately Denies chest congestion, Denies cough, Denies dyspnea and Denies wheezing GI Denies abdominal pain, Denies bloating, Denies constipation, Denies dysphagia, Denies heartburn, Denies diarrhea, Denies nausea, Denies odynophagia and Denies vomiting Denies hematuria, Denies dysuria and Denies urinary incontinence Musc Denies back pain, Denies arthralgias and Denies neck pain Skin/Breast Denies breast pain, Denies breast mass, Denies change in pigmentation, Denies lesions and Reports rash (itchy rash over right elbow area) Neuro Details: (+) pain over the area around the left lower rib cage on the side Denies dizziness, Denies headache(s) and Denies paresthesias Psych Denies anxiety and Denies depression Endo Denies fatigue and Denies palpitations Jorge/Lymph Denies easy bruising Aller/Immun Denies itchy eyes and Denies wheezing Physical exam (Primary Care) Vital Signs: Last Vital Signs Pulse 102 H 08/06/23 13:40 BP 112/80 08/06/23 13:40 Pulse Ox 97 08/06/23 13:40 Oxygen Delivery Method Room Air 08/06/23 13:40 BMI result Body Mass Index 42.0 Tobacco/Smoking Status: Tobacco use Status Tobacco use date assessed 08/06/23 08/06/23 13:43 Patient Tobacco Use Status Never used Tobacco 08/06/23 13:43 PHQ-9: PHQ-9 Score PHQ-9: Total score 0 08/06/23 14:05 Depression Screening Interpretation: Negative Thrive Assessment: Date of Thrive Assessment Date Thrive assessed 08/06/23 08/06/23 13:43 Currently or been in a relationship where the following occur: no concerns reported Const Other: Physical exam today is limited to what patient can participate in considering her developmental disabilities General: no acute distress, alert and awake Limitations: behavioral limitations (has autism and is mostly non-verbal) HENWV Head: Yes normocephalic and Yes atraumatic Ears: external ears normal, TM's normal bilaterally and EAC's normal General nose exam: No nasal discharge present Face and sinus: Yes normal facial exam and Yes face symmetric Throat: Yes posterior oropharynx normal and Yes tonsils normal (no TP congestion) Eyes Eyelids: Yes eyelids normal Conjunctivae: conjunctivae normal Neck Neck: Yes no lymphadenopathy and Yes supple Thyroid: Thyroid normal Resp Auscultation: clear to auscultation bilaterally, no rales and no wheezes Cardio Rate: regular rate Rhythm: regular rhythm Heart sounds: no murmurs GI Palpation (GI): Soft to palpation and nontender Auscultation: normal bowel sounds Back/Spine/Pelvis Thoracic/Lumbar Spine: thoracic and lumbar spine normal to inspection Skin Lesions: no lesions Rashes: rashes noted ((+) pruritic group of erythematous papular rash over the R elbow) Neuro General: moves all extremities Gait exam (Neuro): Normal gait present Extrem General: Yes no clubbing, cyanosis or edema Assessment and Plan Assessment & Plan (1) Annual physical exam: Code(s): Z00.00 - Encounter for general adult medical examination without abnormal findings Plan: Check labs Per request, will also check her FBS and HgbA1c for further evaluation (2) 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 - Other specified mononeuropathies Plan: Will start her back on Gabapentin 250 mg (5 ml) TID She used to go to pain management at [facility] but has not been back in a couple of years (3) Pruritic rash: Code(s): L28.2 - Other prurigo Plan: Will start her again on Betamethasone dipropionate 0.05% apply to rash over her elbow BID PRN - she has been prescribed this in the past and will send in Rx for the same for now (4) Insomnia: Code(s): G47.00 - Insomnia, unspecified Qualifiers: Insomnia type: unspecified Qualified Code(s): G47.00 - Insomnia, unspecified Plan: Continune Melatonin 5 mg Q HS (5) Autism: Code(s): F84.0 - Autistic disorder Plan: Follow up with psychiatry as scheduled (6) Anxiety: Comment: Doing well on sertraline, following with a therapist weekly. 04/17 Code(s): F41.9 - Anxiety disorder, unspecified Plan: Will try increasing her Sertraline from 20 mg to 40 mg QD Follow up with psychiatry as scheduled Plan Follow up in 4 months Orders: Orders Comprehensive Met. Panel Today Z00.00 - Encounter for general adult medical examination without abnormal findings UA CC w/rflx Micro + Cult Today R30.0 - Dysuria, Z00.00 - Encounter for general adult medical examination without abnormal findings Cholesterol Today Z00.00 - Encounter for general adult medical examination without abnormal findings Complete Blood Count Auto Diff Today D64.9 - Anemia, unspecified, Z00.00 - Encounter for general adult medical examination without abnormal findings TSH reflex Free T4 Today E78.00 - Pure hypercholesterolemia, unspecified, Z00.00 - Encounter for general adult medical examination without abnormal findings Vitamin D 25-OH Total Today E55.9 - Vitamin D deficiency, unspecified, Z00.00 - Encounter for general adult medical examination without abnormal findings Hemoglobin A1c Today R73.9 - Hyperglycemia, unspecified, Z00.00 - Encounter for general adult medical examination without abnormal findings Medications: Changed From sertraline 40 mg PO DAILY To sertraline 40 mg (2 mL) PO DAILY 30 days 60 mL 3RF Refilled gabapentin 250 mg (5 mL) PO TID 30 days 450 mL 3RF G58.8 - Other specified mononeuropathies betamethasone dipropionate 0.05% 1 appl topical BID 10 days PRN 60 mL 0RF rash Coding Level of Care Code New Pt Prev Care 18-39yr([id number] Diagnoses Annual physical exam Z00.00 Intercostal neuritis G58.8 Pruritic rash L28.2 Insomnia, unspecified type G47.00 Insomnia type: unspecified Autism F84.0 Anxiety F41.9
== END 2023-08-06 14:46 | disposition home or self-care (01) ==
PROVIDERS: PCP Internal Medicine; Visit Provider Internal Medicine
DX: Z00.00 Encounter for general adult medical examination without abnormal findings (principal); G58.8 Other specified mononeuropathies; L28.2 Other prurigo; G47.00 Insomnia, unspecified; F84.0 Autistic disorder; F41.9 Anxiety disorder, unspecified
CPT/HCPCS: 99395

== ENCOUNTER 2023-08-07 08:50 | Outpatient (REF) | payer OTHER, SELFPAY ==
[2023-08-07 10:49] LABS: MANUAL DIFF FLAG NO
[2023-08-07 10:55] LABS: Basophils Absolute Auto 0.1 X10*3/uL (0.0-0.2); Basophils Percent Auto 0.5 % (0-2); Eosinophils Absolute Auto 0.3 X10*3/uL (0.0-0.4); Eosinophils Percent Auto 2.6 % (0-4); Hematocrit 43.2 % (37.0-47.0); Hemoglobin 13.8 g/dl (12.0-16.0); Imm Gran Abs Auto 0.05 X10*3/uL (0.00-0.03); Imm Gran Pct Auto 0.5 % (0.0-0.4); Lymphocytes Absolute Auto 2.5 X10*3/uL (1.2-4.9); Mean Corpuscular HGB Conc 31.9 g/dl (31.0-35.0); Mean Corpuscular Volume 84.4 fL (80.0-98.0); Mean Platelet Volume 9.3 fL (9.4-12.3); Monocytes Absolute Auto 0.8 X10*3/uL (0.1-1.2); Monocytes Percent Auto 8.1 % (2-11); Neutrophils Absolute Auto 6.4 x10*3/uL (2.0-8.3); Neutrophils Percent Auto 63.3 % (45-73); Platelet Count 320 X10*3/uL (160-400); Red Blood Count 5.12 X10*6/uL (4.20-5.50); Red Cell Distribution Width 14.1 % (11.0-16.0); White Blood Count 10.1 X10*3/uL (4.8-10.8)
[2023-08-07 10:57] LABS: Appearance Urine Clear; Color Urine Yellow; Glucose Urine UA Negative (Negative); Leukocyte Esterase Urine Negative (Negative); Nitrite Urine Negative (Negative); PH 5.5 (5.0-9.0); Specific Gravity - Urine 1.025 (1.005-1.025); Urine Blood Negative (Negative); Urine Ketones Negative (Negative); Urine Protein Negative (Neg-Trace)
[2023-08-07 11:17] LABS: Alanine Aminotransferase 17 U/L (0-31); Albumin Level 3.9 g/dL (3.5-5.0); Alkaline Phosphatase 111 U/L (39-117); Anion Gap 9 (12-20); Aspartate Amino Transferase 15 U/L (5-31); Bilirubin Total 0.4 mg/dL (0.0-1.0); Blood Urea Nitrogen 12 mg/dL (9-16); Calcium 9.5 mg/dL (8.4-10.2); Carbon Dioxide 28 mmol/L (22-29); Chloride 107 mmol/L (96-108); Cholesterol 198 mg/dL (<200); Estimated Glomerular Filt Rate > 60; Glucose Random 94 mg/dL (60-115); Potassium 3.4 mmol/L (3.3-5.1); Sodium 141 mmol/L (135-145); Total Protein 7.7 g/dL (6.5-8.0)
[2023-08-07 11:18] LABS: Estimated Average Glucose 94 mg/dL; Hemoglobin A1c % 4.9 % (<6.0)
[2023-08-07 11:32] LABS: TSH reflex Free T4 5.05 uIU/mL (0.32-4.0); Vitamin D 25-OH Total 14.6 ng/mL (>30)
[2023-08-07 12:25] LABS: Free T4 (Free Thyroxine) 1.03 ng/dL (0.71-1.85)
== END 2023-08-07 08:51 | disposition home or self-care (01) ==
LOC: HO.10HDL 08:50
PROVIDERS: Visit Provider Internal Medicine
DX: Z00.00 Encounter for general adult medical examination without abnormal findings (principal); R30.0 Dysuria; D64.9 Anemia, unspecified; R73.9 Hyperglycemia, unspecified; E78.00 Pure hypercholesterolemia, unspecified; E55.9 Vitamin D deficiency, unspecified
CPT/HCPCS: 36415; 80053; 81003; 82306; 82465; 83036; 84439; 84443; 85025

== ENCOUNTER 2023-12-10 13:47 | Outpatient (AMB) | payer OTHER, SELFPAY ==
--- NOTE | 2023-12-10 13:56 | MHC.PC.OV ---
Vital Signs 12/10/23 13:58 Height 5 ft 2.5 in Weight 226 lb 2 oz BMI 40.7 BP 130/60 Blood Pressure Location Lt brachial Position Sitting Pulse 105 H Pulse Source Pulse Oximeter Pulse Oximetry (%) 95 Oxygen Delivery Method Room Air Intake Visit Reasons: autism, intercostal neuritis, anxiety Intake Note: Patient is here to follow up on Autism, Intercostal Neuritis, Anxiety . Radiation Oncology Therapist Required: No Groover And Turner: Present (mother and aunt) Accompanied by: Mother Allergies No Known Allergies Allergy (Verified 12/11/23 09:11) Medication List - Last Reconciled 12/11/23 by Gurdeep Cedeno MD betamethasone dipropionate 0.05% 1 appl topical BID PRN 10 days cholecalciferol (vitamin D3) 50 mcg (2 x 25 mcg (1,000 unit)) PO DAILY 90 days gabapentin 250 mg (5 mL) PO TID 30 days ibuprofen 600 mg PO Q8H PRN NS melatonin 5 mg PO BEDTIME sertraline 40 mg (2 mL) PO DAILY 30 days Tobacco use date assessed: 12/10/23 Dental Screening Dental Screen Date: 08/06/23 HPI autism, intercostal neuritis, anxiety HPI Details Patient comes in today for her follow up visit She has autism and is mostly non-verbal although she would occasionally speak in one word answers; information is obtained mostly from her aunt and her mother, both of who are here with her today She continues to complain of frequent pain and discomfort over her left lower rib cage area (she has intercostal neuritis) but her Gabapentin is helping with her pain Family relates that her anxiety is now better controlled with the dose increase (40 mg) to her Sertraline at her last visit She is otherwise doing well and they would like to know how she did on her labs done back in July 2023 Patient has had no acute issues with headaches, dizziness, chest pains or SOB Family states that patient eats very well No nausea/vomiting, no abdominal pain and no change in bowel habits noted [facility] Medical History (Updated 12/11/23 @ 09:27 by Gurdeep Cedeno MD) Vitamin D deficiency Morbid obesity with BMI of 40.0-44.9, adult Insomnia Anxiety Autism Intercostal neuritis Surgical History No pertinent past surgical history Family History Mother No problems noted. Other Diabetes FH: mental illness Substance abuse Social History Housing: Apartment Alcohol intake: never Patient Tobacco Use Status: Never used Tobacco e-Cigarette/Vaping Use: Never Used Second Hand Smoke Exposure: No service: No Current occupational status: student Cognitive needs: No Hearing needs: No Vision needs: No Questionnaire PHQ-9 Over the last 2 weeks, how often have you been bothered by any of the following problems? 2. Feeling down, depressed, or hopeless: several days (in treatment) Source: Developed by Drs. Roman Baldwin, Elena Delgado, Aldo Scott and colleagues, with an educational luciano from [employer]. Thrive Questionnaire Date Thrive assessed: 08/06/23 JAYSON-7 AMB Questionnaire JAYSON-7 Date JAYSON - 7 assessed: 08/06/23 Feeling nervous, anxious, or on edge: 1 = Several days (in treatment) Source: Developed by Drs. Roman Baldwin, Elena Delgado, Aldo Scott and colleagues, with an educational luciano from [employer]. Review of Systems Const Details: ROS information is obtained mostly from patient's aunt / family as patient has autism and is mostly non-verbal Denies chills, Denies fatigue, Denies fever(s) and Denies headache(s) ENT Denies dysphagia, Denies dizziness, Denies otalgia, Denies headache(s), Denies neck pain, Denies odynophagia and Denies sore throat Card Denies chest pain, Denies irregular heart rhythm, Denies palpitations and Denies dyspnea Resp Details: per family, patient c/o recurrent pain over the left lower ribs on the (left) lateral side of her thorax Denies chest congestion, Denies cough, Denies dyspnea and Denies wheezing GI Denies abdominal pain, Denies constipation, Denies dysphagia, Denies heartburn, Denies diarrhea, Denies nausea, Denies odynophagia and Denies vomiting Denies hematuria, Denies difficulty voiding, Denies dysuria and Denies urinary incontinence Musc Denies back pain, Denies arthralgias and Denies neck pain Skin/Breast Denies rash Neuro Details: (+) pain over the area around the left lower rib cage on the side Denies dizziness, Denies headache(s) and Denies paresthesias Psych Denies anxiety (better controlled at present) and Denies depression Endo Denies fatigue and Denies palpitations Jorge/Lymph Denies easy bruising Aller/Immun Denies wheezing Physical exam (Primary Care) Vital Signs: Last Vital Signs Pulse 105 H 12/10/23 13:58 BP 130/60 12/10/23 13:58 Pulse Ox 95 12/10/23 13:58 Oxygen Delivery Method Room Air 12/10/23 13:58 BMI result Body Mass Index 40.7 Tobacco/Smoking Status: Tobacco use Status Tobacco use date assessed 12/10/23 12/10/23 14:03 Patient Tobacco Use Status Never used Tobacco 12/10/23 14:03 e-Cigarette/Vaping Use Never Used 12/10/23 14:03 Thrive Assessment: Date of Thrive Assessment Date Thrive assessed 08/06/23 12/10/23 14:03 Const Other: Physical exam today is limited to what patient can participate in considering her developmental disabilities General: no acute distress and alert Limitations: behavioral limitations (has autism and is mostly non-verbal) HENMT Ears: TM's normal bilaterally and EAC's normal Throat: Yes posterior oropharynx normal and Yes tonsils normal (no TP congestion) Neck Neck: Yes no lymphadenopathy and Yes supple Thyroid: Thyroid normal Resp Auscultation: clear to auscultation bilaterally, no rales and no wheezes Cardio Rate: regular rate Rhythm: regular rhythm Heart sounds: no murmurs GI Palpation (GI): Soft to palpation and nontender Auscultation: normal bowel sounds Back/Spine/Pelvis Thoracic/Lumbar Spine: thoracic and lumbar spine normal to inspection Skin Rashes: no rashes Neuro Gait exam (Neuro): Normal gait present Extrem General: Yes no clubbing, cyanosis or edema Results Reviewed Results Reviewed: Laboratory Tests 08/07/23 08/07/23 08:50 08:55 WBC 10.1 Hgb 13.8 Hct 43.2 Plt Count 320 Sodium 141 Potassium 3.4 Creatinine 0.72 Estimated GFR > 60 Random Glucose 94 Hemoglobin A1c % 4.9 Calcium 9.5 AST 15 ALT 17 Cholesterol 198 25-OH Vitamin D Total 14.6 L TSH 5.05 H Free T4 1.03 Ur Specific [place]ley 1.025 Urine Protein Negative Urine Glucose (UA) Negative Urine Blood Negative Urine Nitrite Negative Ur Leukocyte Esterase Negative Assessment and Plan Assessment & Plan (1) 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 - Other specified mononeuropathies Plan: Better controlled lately Continue Gabapentin 250 mg (5 ml) TID She used to go to pain management at [facility] but has not been back there in a couple of years now (2) Vitamin D deficiency: Code(s): E55.9 - Vitamin D deficiency, unspecified Plan: Results of her labs done back in July 2023 reviewed and discussed with patient's mother and aunt Have advised them that patient's vitamin D level is low - will start her on Vitamin D3 2000 units QD Have also reassured then that patient's FBS and HgbA1c were both normal and that she does not have diabetes, which was one of their concerns a few months ago when they requested for patient to be checked for her blood sugar (3) Elevated TSH: Code(s): R79.89 - Other specified abnormal findings of blood chemistry Plan: Her serum TSH level is slightly elevated on her labs done in July 2023 but her free T4 level is normal Patient is also clinically euthyroid Will just continue monitoring her TFTs annually / regularly for now (4) Insomnia: Code(s): G47.00 - Insomnia, unspecified Qualifiers: Insomnia type: unspecified Qualified Code(s): G47.00 - Insomnia, unspecified Plan: Continune Melatonin 5 mg Q HS (5) Autism: Code(s): F84.0 - Autistic disorder Plan: Follow up with psychiatry as scheduled (6) Anxiety: Comment: Doing well on sertraline, following with a therapist weekly. 04/17 Code(s): F41.9 - Anxiety disorder, unspecified Plan: Continue Sertraline 40 mg QD Follow up with psychiatry as scheduled Plan To return in July 2024 for her next annual physical examination Medications: New cholecalciferol (vitamin D3) can crush tablets (patient unable to swallow pills) 50 mcg (2 x 25 mcg (1,000 unit)) PO DAILY 90 days 180 tabs 3RF Coding Level of Care Code Est Pt Level 4 (32920) Diagnoses Intercostal neuritis G58.8 Vitamin D deficiency E55.9 Elevated TSH R79.89 Insomnia, unspecified type G47.00 Insomnia type: unspecified Autism F84.0 Anxiety F41.9
[2023-12-10 13:58] VITALS: BP 130/60; PULSE 105; O2SAT 95; BMI 40.7
== END 2023-12-10 14:42 | disposition home or self-care (01) ==
PROVIDERS: PCP Internal Medicine; Visit Provider Internal Medicine
DX: G58.8 Other specified mononeuropathies (principal); E55.9 Vitamin D deficiency, unspecified; R79.89 Other specified abnormal findings of blood chemistry; G47.00 Insomnia, unspecified; F84.0 Autistic disorder; F41.9 Anxiety disorder, unspecified
CPT/HCPCS: 99214

== ENCOUNTER 2024-09-02 12:59 | Emergency (ER) | payer OTHER, SELFPAY ==
--- NOTE | ~2024-09-02 | CT_ITS ---
EXAMINATION: CT ABDOMEN PELVIS WITH IV CONTRAST HISTORY: L sided abd tenderness COMPARISON: There are no prior studies for comparison. TECHNIQUE: CT scan of the abdomen and pelvis was performed following administration of 85 mL Omnipaque 350 using standard departmental protocol. Coronal and sagittal reformatted images were generated and reviewed. Oral contrast material was not administered at the request of the referring physician. This CT exam was performed with one or more of the following dose reduction techniques: automated exposure control, adjustment of the mA and/or kV according to patient size, use of iterative reconstruction technique. DLP: 1240 mGy-cm FINDINGS: LOWER CHEST: The visualized lung bases are clear. There is no pleural effusion. CARDIOVASCULATURE: The heart is normal in size. There is no pericardial effusion. LIVER: The liver is normal in size and contour. No liver mass is identified. The hepatic and portal veins are patent. GALLBLADDER / BILE DUCTS: The gallbladder is unremarkable. There is no intra or extrahepatic biliary ductal dilatation. SPLEEN: The spleen is normal in size. No focal splenic lesion is identified. PANCREAS: The pancreas is unremarkable in appearance. ADRENAL GLANDS: Within normal limits. KIDNEYS/RETROPERITONEUM: No renal calculi are identified. There is no hydronephrosis. No renal masses are identified. LYMPH NODES: No abdominal or pelvic lymphadenopathy. VASCULATURE: The abdominal aorta is normal in caliber. MESENTERY/PERITONEUM: No free fluid. No masses. There is no free intraperitoneal gas. STOMACH: The stomach is collapsed, limiting evaluation. SMALL BOWEL: The small bowel is normal in caliber. COLON: The colon is unremarkable. APPENDIX: Normal. URINARY BLADDER/PELVIC ORGANS: The urinary bladder is unremarkable. The uterus and ovaries are unremarkable. BONES / SOFT TISSUES: No suspicious bony or soft tissue abnormalities. CT/CT abdomen pelvis w IV con IMPRESSION: Unremarkable contrast-enhanced CT of the abdomen and pelvis. Electronically signed by: Roman Harris MD 09/02/2024 03:40 PM EDT
[2024-09-02 13:08] VITALS: BP 121/77; PULSE 76; RESP 16; TEMP 36.7; O2SAT 98; BMI 48.4
--- NOTE | 2024-09-02 13:09 | ED_ITS ---
HPI - General Adult General Chief complaint: Abdominal Pain Stated complaint: abd pain Time Seen by Provider: 09/02/24 14:51 Source: patient, family (aunt), RN notes reviewed and old records reviewed Mode of arrival: ambulatory History of Present Illness ED Provider: Anne-Marie MATHIS narrative: Patient is a 23-year-old female with history of autism, anxiety, obesity, insomnia presenting to the emergency department with aunt complaining of left sided abdominal pain for the past few days. Seen at urgent care and had negative urinalysis, advised to come to ED for further evaluation. Aunt reports that patient's mother has Stage IV CA, was recently inpatient here. She states that patient often complains of left upper abd pain/lower rib pain due to anxiety. Patient and aunt deny fevers, nausea, vomiting, diarrhea, constipation. Patient denies any pain with urination. MD complaint: abdominal pain Onset (ago): day(s) Location: abdomen Radiation: non-radiation Severity: moderate Quality: aching Pain Consistency: colicky Associated symptoms: denies other symptoms Treatments prior to arrival: none Related Data Home Medications ?Medication ?Instructions ?Recorded ?Confirmed melatonin 1 mg/mL oral liquid 5 mg PO BEDTIME 11/07/22 12/11/23 Previous Rx's ?Medication ?Instructions ?Recorded ibuprofen 600 mg tablet 600 mg PO Q8H PRN pain #20 tabs 07/19/20 betamethasone dipropionate 0.05 % 1 appl topical BID PRN rash 10 08/06/23 lotion days #60 mL cholecalciferol (vitamin D3) 25 50 mcg (2 x 25 mcg (1,000 unit)) 12/10/23 mcg (1,000 unit) tablet PO DAILY 90 days #180 tabs sertraline 20 mg/mL oral 40 mg (2 mL) PO DAILY 30 days #60 02/27/24 concentrate mL gabapentin 250 mg/5 mL oral 250 mg (5 mL) PO TID 30 days #450 08/19/24 solution mL Allergies Allergy/AdvReac Type Severity Reaction Status Date / Time No Known Allergies Allergy Verified 09/02/24 13:13 Review of Systems 2 Review of Systems: As per HPI Yes all other systems are reviewed and are negative Constitutional: Constitutional: Reports as per HPI [facility] Past Medical History Medical History (Updated 09/02/24 @ 16:14 by Bridgette Xie NP) Vitamin D deficiency Morbid obesity with BMI of 40.0-44.9, adult Insomnia Anxiety Autism Intercostal neuritis Surgical History No pertinent past surgical history Family History Family History Mother No problems noted. Other Diabetes FH: mental illness Substance abuse Social History Social History Housing: Apartment Alcohol intake: never Patient Tobacco Use Status: Never used Tobacco Smoked in Last 30 Days: No e-Cigarette/Vaping Use: Never Used Second Hand Smoke Exposure: No Use of substances other than those prescribed or required for medical reasons: No Advance Directives: No Advance Directives Information Provided: Yes Patient : No service: No Current occupational status: student Cognitive needs: No Hearing needs: No Vision needs: No Physical Exam ED Vital Signs: Vital Signs - 24 hr 09/02/24 13:08 Temperature 98.1 F Pulse Rate 76 Respiratory Rate 16 Blood Pressure 121/77 Pulse Oximetry 98 Oxygen Delivery Method Room Air BMI result Body Mass Index 48.4 Vital signs have been reviewed and appear to be correct. Blood pressure normal. Heart rate normal. Respiratory rate normal. Temperature normal. Oxygen saturation normal. Const General: cooperative, healthy appearing and no acute distress Orientation/consciousness: oriented to person, oriented to place, oriented to time and patient oriented x3 Limitations: no limitations HENMT Head: Yes normocephalic and Yes atraumatic Ears: external ears normal General nose exam: Normal external nose present Face and sinus: Yes face symmetric Mouth: oropharynx normal and moist mucous membranes Throat: Yes uvula midline Eyes Pupils: Equal, round and reactive pupils present Neck Neck: Yes normal visual inspection and Yes supple Resp Effort & Inspection: normal respiratory effort and able to speak in complete sentences Auscultation: clear to auscultation bilaterally Cardio Rate: regular rate Rhythm: regular rhythm Heart sounds: S1 normal heart sound present and S2 normal heart sound present GI Palpation (GI): Soft to palpation, Tenderness to palpation present (GI) in the LUQ, no guarding and No Rebound tenderness present Auscultation: normoactive bowel sounds General: Yes no CVA tenderness Back/Spine/Pelvis Back: no CVA tenderness Skin General skin exam: elasticity normal and turgor normal Neuro General: oriented to person, oriented to place, oriented to time, patient oriented x3, moves all extremities, no focal motor deficits and CN's II-XI intact bilaterally Cranial nerves: Yes Equal, round and reactive pupils present Cognition (Neuro): normal cognition Extrem General: Yes full ROM, Yes no pedal edema and Yes no calf tenderness Psych Mental Status: mental status grossly normal Affect: normal affect Thought process: Normal thought process present Course Course Course Narrative: RME, this is a rapid medical exam performed by Issa Wild please refer to primary provider for complete H&P- 23-year-old female with past medical history significant for developmental delay presents for evaluation of abdominal pain for the last few days. She was seen at urgent care and referred to the ER. She had negative and negative urinalysis. Plan for labs, urinalysis. The patient's pain is mostly left-sided. Will defer any potential imaging to primary ER provider Medications Administered Discontinued Medications Generic Name Dose Route Start Last Admin Trade Name Freq PRN Reason Stop Dose Admin Iohexol 100 ml 09/02/24 15:24 09/02/24 15:24 Iohexol 350 Mg/Ml 100 Ml Infus..Btl IV 09/02/24 15:25 100 ml ONCE ONE Administration Medical Decision Making Medical Decision Making [facility] Narrative: Patient is a 23-year-old female with history of autism, anxiety, obesity, insomnia presenting to the emergency department with aunt complaining of left sided abdominal pain for the past few days. On exam patient is awake, A+Ox3, VS WNL, afebrile, normal neurological exam without focal deficits, physical exam findings as above. Given reported symptoms and physical exam findings, initial differential includes but is not limited to UTI, renal colic, ureteral calculi, diverticulitis, gastritis, GERD. Labs notable for no leukocytosis, no anemia, no significant electrolyte abnormalities, no MARITZA, normal transaminases. Urinalysis is without evidence of infection, calcium oxalate present. CT A/P unremarkable. My interpretation is in agreement with the radiologist's interpretation. Results discussed with patient and aunt, advised that it is possible patient previously passed a kidney stone. Also discussed that her symptoms may be related to anxiety due to her mother's recent inpatient hospitalization. Advised follow up with PCP. Return precautions discussed. Patient and aunt verbalized understanding of and agreement with plan. Differential Diagnosis Differential Diagnoses: The differential diagnosis associated with the presentation includes As per [facility] Admission/Observation Consideration of admission/observation: Escalation of care including admission/observation considered Patient would have been admitted to the hospital had their work up had any findings where hospital admission was appropriate and their clinical presentation warranted hospital admission. Lab Data [facility] Lab Attestation statement: I reviewed the patient's lab results. As per [facility] 09/02/24 13:25 09/02/24 13:25 Labs: Lab Results 09/02/24 09/02/24 Range/Units 13:25 13:57 WBC 5.8 (4.8-10.8) X10*3/uL RBC 4.96 (4.20-5.50) X10*6/uL Hgb 13.8 (12.0-16.0) g/dl Hct 40.6 (37.0-47.0) % MCV 81.9 (80.0-98.0) fL MCH 27.8 (27.0-33.0) pg MCHC 34.0 (31.0-35.0) g/dl RDW 13.2 (11.0-16.0) % Plt Count 281 (160-400) X10*3/uL MPV 9.2 L (9.4-12.3) fL Immature Gran % (Auto) 0.5 H (0.0-0.4) % Neut % (Auto) 51.9 (45-73) % Lymph % (Auto) 34.4 (20-40) % Motley % (Auto) 10.1 (2-11) % Eos % (Auto) 2.6 (0-4) % Baso % (Auto) 0.5 (0-2) % Lymph # (Auto) 2.0 (1.2-4.9) X10*3/uL Motley # (Auto) 0.6 (0.1-1.2) X10*3/uL Eos # (Auto) 0.2 (0.0-0.4) X10*3/uL Baso # (Auto) 0.0 (0.0-0.2) X10*3/uL Abs Immat Gran (auto) 0.03 (0.00-0.03) X10*3/uL Absolute Neuts (auto) 3.0 (2.0-8.3) x10*3/uL Absolute Nucleated RBC 0.000 (0.0-0.012) X10*3/uL Nucleated RBC % (auto) 0.0 (0.0-0.2) /100WBC Sodium 140 (135-145) mmol/L Potassium 3.6 (3.3-5.1) mmol/L Chloride 109 H (96-108) mmol/L Carbon Dioxide 26 (22-29) mmol/L Anion Gap 9 L (12-20) BUN 11 (9-16) mg/dL Creatinine 0.79 (0.5-1.4) mg/dL Estim Creat Clear Calc 127.4 Estimated GFR > 60 Random Glucose 88 (60-115) mg/dL Calcium 9.5 (8.4-10.2) mg/dL Total Bilirubin 0.3 (0.0-1.0) mg/dL AST 25 (5-31) U/L ALT 19 (0-31) U/L Alkaline Phosphatase 94 (39-117) U/L Total Protein 7.2 (6.5-8.0) g/dL Albumin 3.9 (3.5-5.0) g/dL Lipase 18 (8-78) U/L Beta HCG, Quant < 2 mIU/mL Urine Color Yellow Urine Appearance Cloudy Urine pH 5.5 (5.0-9.0) Ur Specific [place] >= 1.030 H (1.005-1.025) Urine Protein Negative (Neg-Trace) mg/dL Urine Glucose (UA) Negative (Negative) mg/dL Urine Ketones Trace (Negative) mg/dL Urine Blood Negative (Negative) Urine Nitrite Negative (Negative) Ur Leukocyte Esterase Negative (Negative) Urine RBC 0-2 (0-2) /HPF Urine WBC 0-5 (0-5) /HPF Ur Squamous Epith Cells 6-10 (0-2) /HPF Calcium Oxalate Crystal Present Urine Bacteria 1+ (None Seen) Hyaline Casts 0-2 (0-2) /LPF Independent Interpretation I performed an independent interpretation of an: CT Scan Interpretation: No acute abnormalities on CT A/P. Radiology Impression Discussion of test interpretation with radiology: I have reviewed the radiologist's reading. Radiologist Impression: CT/CT abdomen pelvis w IV con IMPRESSION: Unremarkable contrast-enhanced CT of the abdomen and pelvis. Independent Historian Clinical information obtained from an independent historian. History obtained from or confirmed by: Other (aunt) External Record Review External record reviewed: Inpatient record, Office record and Outpatient record Discharge Plan Discharge Clinical Impression: Abdominal pain Patient Disposition: Home, Self-Care Instructions: Abdominal Pain (ED) Additional Instructions: You have been evaluated in the emergency department today for abdominal pain. Your evaluation did not show evidence of medical conditions requiring emergent intervention at this time. Please schedule an appointment with your primary care physician. Return to the emergency department if you experience worsening or uncontrolled pain, fevers 100.4? F or greater, recurrent vomiting, inability to tolerate food or fluids by mouth, bloody stools or vomit, black or tarry stools, or any other concerning symptoms. Prescriptions: No Action sertraline 20 mg/mL concentrate 40 mg PO DAILY 30 Days Qty: 60 3RF gabapentin 250 mg/5 mL solution 250 mg PO TID 30 Days Qty: 450 3RF ibuprofen 600 mg tablet 600 mg PO Q8H PRN (Reason: pain) Qty: 20 0RF cholecalciferol (vitamin D3) 25 mcg (1,000 unit) tablet 50 mcg PO DAILY 90 Days Qty: 180 3RF Rx Instructions: can crush tablets (patient unable to swallow pills) melatonin 1 mg/mL liquid 5 mg PO BEDTIME betamethasone dipropionate 0.05 % lotion 1 appl topical BID PRN (Reason: rash) 10 Days Qty: 60 0RF Print Language: Maldivian
[2024-09-02 13:30] LABS: MANUAL DIFF FLAG NO
[2024-09-02 13:38] LABS: Basophils Percent Auto 0.5 % (0-2); Eosinophils Absolute Auto 0.2 X10*3/uL (0.0-0.4); Eosinophils Percent Auto 2.6 % (0-4); Hematocrit 40.6 % (37.0-47.0); Hemoglobin 13.8 g/dl (12.0-16.0); Imm Gran Abs Auto 0.03 X10*3/uL (0.00-0.03); Imm Gran Pct Auto 0.5 % (0.0-0.4); Lymphocytes Percent Auto 34.4 % (20-40); Mean Corpuscular Hemoglobin 27.8 pg (27.0-33.0); Mean Corpuscular Volume 81.9 fL (80.0-98.0); Mean Platelet Volume 9.2 fL (9.4-12.3); Monocytes Absolute Auto 0.6 X10*3/uL (0.1-1.2); Monocytes Percent Auto 10.1 % (2-11); Neutrophils Percent Auto 51.9 % (45-73); Platelet Count 281 X10*3/uL (160-400); Red Blood Count 4.96 X10*6/uL (4.20-5.50); Red Cell Distribution Width 13.2 % (11.0-16.0); White Blood Count 5.8 X10*3/uL (4.8-10.8)
[2024-09-02 13:59] LABS: Alanine Aminotransferase 19 U/L (0-31); Albumin Level 3.9 g/dL (3.5-5.0); Alkaline Phosphatase 94 U/L (39-117); Anion Gap 9 (12-20); Aspartate Amino Transferase 25 U/L (5-31); Bilirubin Total 0.3 mg/dL (0.0-1.0); Blood Urea Nitrogen 11 mg/dL (9-16); Calcium 9.5 mg/dL (8.4-10.2); Carbon Dioxide 26 mmol/L (22-29); Chloride 109 mmol/L (96-108); Creatinine Clr Calc Pharmacy 127.4; Estimated Glomerular Filt Rate > 60; Glucose Random 88 mg/dL (60-115); HCG Quantitative < 2 mIU/mL; Lipase 18 U/L (8-78); Potassium 3.6 mmol/L (3.3-5.1); Sodium 140 mmol/L (135-145); Total Protein 7.2 g/dL (6.5-8.0)
[2024-09-02 14:03] LABS: Appearance Urine Cloudy; Color Urine Yellow; Glucose Urine UA Negative (Negative); Leukocyte Esterase Urine Negative (Negative); Nitrite Urine Negative (Negative); PH 5.5 (5.0-9.0); Specific Gravity - Urine >= 1.030 (1.005-1.025); Urine Blood Negative (Negative); Urine Ketones Trace mg/dL (Negative); Urine Protein Negative (Neg-Trace)
[2024-09-02 14:14] LABS: Bacteria Urine 1+ (None Seen); Calcium Oxalate Crystals Urine Present; Hyaline Casts Urine 0-2 /LPF (0-2); RBC Urine 0-2 /HPF (0-2); WBC Urine 0-5 /HPF (0-5)
[2024-09-02] MEDS: iohexoL 350 MG/ML 100 ML INFUS..BTL IV (15:24)
--- NOTE | 2024-09-02 15:30 | PC.NURSE ---
pt taken to CT scan 20g IV access established
[2024-09-02 16:28] VITALS: BP 121/77; PULSE 76; RESP 16; TEMP 36.7; O2SAT 98
--- OUTSIDE RECORDS SUMMARY | 2024-09-02 17:43 | XMS_ITS | Clinical Summary ---
Author Organization [facility] 's Address [address] [place] [address] Care Team Providers Care Bus Trolley And Taxi Instructor Name Role Phone Jada Delgado Primary Care Provider [phone] Source Comments Please note that some or all of the patient's information could have additional privacy protections. State laws allow health care providers to render certain types of treatment to minors without parental consent. Please do not assume that this information can be shared solely by obtaining just the consent of the patient's parent/guardian. Please determine if all or part of the patient's care was rendered without parent/guardian involvement. And, if so, obtain the minor's consent prior to disclosure.[facility] Allergies No known active allergies Medications ibuprofen (MOTRIN) 600 MG tablet TAKE 1 TABLET EVERY 8 HOURS NEEDED FOR PAIN 07/20/2020 Active Active Problems Problem Noted Date Diagnosed Date Heartburn 08/19/2020 Overview (08/19/2020): Added automatically from request for surgery [id number] Family History Medical History Relation Name Comments No Known Problems Father No Known Problems Mother Anesthesia problems Neg Hx Relation Name Status Comments Father Mother Social History Tobacco Use Types Packs/Day Years Used Date Smoking Tobacco: Never Smokeless Tobacco: Never Other Needs Answer Date Recorded Anything else about your child you'd like help w ith? Not on file 02/09/2023 Share good news about positive changes: Not on f ile 02/09/2023 Comments Unknown Sex and Gender Information Value Date Recorded Sex Assigned at Not on file Legal Sex Female 9:06 AM EDT Gender Identity Not on file Sexual Orientation Not on file Last Filed Vital Signs Vital Sign Reading Time Taken Comments Blood Pressure 120/77 09/08/2020 12:06 PM EDT Pulse 104 09/08/2020 12:06 PM EDT Temperature 37.1 ??C (98.8 ??F) 09/08/2020 1 2:06 PM EDT Respiratory Rate 20 09/08/2020 12:0 6 PM EDT Oxygen Saturation 97% 09/08/2020 12: 06 PM EDT Inhaled Oxygen Concentration - - Weight 101.1 kg (222 lb 14.2 oz) 09/08/2020 9:25 AM EDT Height 157.5 cm (5' 2.01 ) 09/08/2020 9:25 AM ED T Body Mass Index 40.76 09/08/2020 9:25 AM EDT Plan of Treatment Health Maintenance Due Date Last Done Comments DTaP/TDAP/TD VACCINES (1 - Tdap) 2008 ADOLESCENT HIV SCREENING 2014 COVID-19 Vaccine (2023-2 5 season) 2024 INFLUENZA (#1) 2024 NIRSEVIMAB VACCINES UNDER 8 MONTHS Aged Out No longer eligible based on patient's age to complete this topic Insurance [facility] Care Teams Bus Trolley And Taxi Instructor Relationship Specialty Start Date End Date Jada Delgado PA [address] [place] [address] [place] [id number] PCP - General Physician Manager Intensive Care Unit 08/17/20
== END 2024-09-02 16:28 | disposition home or self-care (01) ==
PROVIDERS: Physician Assistant; Emergency Provider Emergency Medicine; PCP Internal Medicine
DX: R10.9 Unspecified abdominal pain (principal); F84.0 Autistic disorder; E66.9 Obesity, unspecified; Z68.42 Body mass index [BMI] 45.0-49.9, adult
CPT/HCPCS: 36415; 74177; 80053; 81001; 83690; 84702; 85025; 99284; Q9967

== ENCOUNTER → 2024-09-02 15:14 | Outpatient (BNV) | payer OTHER, SELFPAY | PROVIDERS: Emergency Provider Emergency Medicine; PCP Internal Medicine; Visit Provider Radiology Diagnostic Radiology | DX: R10.814 Left lower quadrant abdominal tenderness (principal) | CPT/HCPCS: 74177 ==